=== PATIENT | female | born 1990 | race Caucasian/White ===

== ENCOUNTER 2021-02-08 17:22 | Emergency (ER) | payer OTHER | END 2021-02-09 01:49 | disposition home or self-care (01) | LOC: ER1 17:22 | DX: R07.81 Pleurodynia (principal); R51.9 Headache, unspecified; N64.4 Mastodynia; G40.909 Epilepsy, unspecified, not intractable, without status epilepticus; Z79.899 Other long term (current) drug therapy | CPT/HCPCS: 71101; 99283 ==